=== PATIENT | male | born 1975 ===

== ENCOUNTER 2017-02-03 18:05 | Emergency (ER) | payer MEDICAID ==
[2017-02-03 18:14] VITALS: BP 129/78; PULSE 94; RESP 16; TEMP 99.3; O2SAT 96
[2017-02-03] MEDS ORDERED: Oxycodone/Acetaminophen 5/325 mg Tab ONE (18:14)
[2017-02-03] MEDS ORDERED: TDAP Vaccine 0.5 mL Syr IM ONE (18:18)
[2017-02-03] MEDS ORDERED: Oxycodone/Acetaminophen 5/325 mg Tab PO STA (18:18)
--- NOTE | 2017-02-03 18:25 | ED PDOC ---
Lower Extremity Pain/Injury Time Seen by Provider: 02/03/17 18:12 Chief Complaint (Nursing): Lower Extremity Problem/Injury Chief Complaint (Provider): Twisted Right Ankle History Per: Patient History/Exam Limitations: no limitations Onset/Duration Of Symptoms: Hrs Current Symptoms Are (Timing): Still Present Additional Complaint(s): Abraham Gregory, a 41 year old male, was brought into the ED by EMS with a twisted right ankle. The patient states that today while walking he tripped and fell over a pothole. He further states that he twisted his right ankle and landed on his left knee. Denies head injury or any other injury. - Ankle/Foot Description Of Injury: Fell, Twisted Past Medical History Reviewed: Historical Data, Nursing Documentation, Vital Signs Vital Signs: Last Vital Signs Temp 99.3 F 02/03/17 18:12 Pulse 94 H 02/03/17 18:12 Resp 16 02/03/17 18:12 BP 129/78 02/03/17 18:12 Pulse Ox 96 02/03/17 18:12 - Medical History PMH: Diabetes - Family History Family History: States: Unknown Family Hx - Allergies Allergies/Adverse Reactions: Allergies Allergy/AdvReac Type Severity Reaction Status Date / Time No Known Allergies Allergy Verified 02/03/17 18:12 Review of Systems Constitutional: Positive for: Other (Denies Head pain or any other medical injury.) Musculoskeletal: Positive for: Other (Twisted right ankle.) Physical Exam - Reviewed Nursing Documentation Reviewed: Yes Vital Signs Reviewed: Yes - Physical Exam Pulses-Dorsalis Pedis (L): 2+ Pulses-Dorsalis Pedis (R): 2+ Extremity: Positive for: Tenderness (Moderate tenderness to lateral maleolus of right ankle;Mild tenderness on dorsum of right foot;Moderate tenderness to left knee.), Swelling (Moderate swelling to lateral maleolus of right ankle; Mild swelling on dorsum of the right foot;Moderate swelling to left knee.), Other ( Superficial abrasion to left knee.). Negative for: Deformity - ECG O2 Sat by Pulse Oximetry: 96 (RA) Pulse Ox Interpretation: Normal - Progress ED Course And Treament: Ankle x-ray: no fx as per [facility] report. Ankle immobilized in ankle air cast splint by RN. Crutches provided. Medical Decision Making Medical Decision Makin:16 Initial Impression: 41 year old male presenting with twisted right ankle Initial Plan: * RAD left knee 3 views * RAD right ankle 3 views routine * RAD right foot 3 views routine * Boostrix vaccine 0.5ml IM * Percocet 5/325mg 2 tab PO Scribe Attestation Documented by Kerri Mishra acting as a scribe for Nixon Montgomery PA-C. Scribe Attestation All medical record entries made by the Scribe were at my direction and personally dictated by me. I have reviewed the chart and agree that the record accurately reflects my personal performance of the history, physical exam, medical decision making, and the department course for this patient. I have also personally directed, reviewed, and agree with the discharge instructions and disposition. Disposition - Clinical Impression Clinical Impression: Ankle sprain - Patient ED Disposition Is Patient to be Admitted: No - Disposition Referrals: Mirza Sinclair MD [Staff Provider] - Disposition: Routine/Home Disposition Time: 21:00 Condition: STABLE Instructions: Ankle Sprain (ED), Crutch Instructions (ED), Ankle Stirrup Splint (ED) Forms: [facility] ED School/Work Excuse Print Language: VIET[place]ESE
--- NOTE | 2017-02-03 18:56 | RAD ---
PROCEDURE: Left Knee Radiographs. Background Radiology CT scan HISTORY: Pain. COMPARISON: None. FINDINGS: BONES: Bone alignment and mineralization are normal. No acute fracture or bone destruction. JOINTS: Normal. JOINT EFFUSION: None. OTHER FINDINGS: None. IMPRESSION: Normal examination.
--- NOTE | 2017-02-03 18:57 | RAD ---
PROCEDURE: Right Foot Radiographs. HISTORY: trauma COMPARISON: None. FINDINGS: BONES: Bone alignment and mineralization are normal. There is no acute fracture or bone destruction. There is a prominent dorsal calcaneal enthesophyte and faint calcifications in the Achilles tendon. There is an os trigonum. JOINTS: Normal. SOFT TISSUES: Normal. OTHER FINDINGS: None. IMPRESSION: No acute fracture or dislocation.
--- NOTE | 2017-02-03 18:58 | RAD ---
PROCEDURE: Right Ankle Radiographs. HISTORY: Trauma COMPARISON: None FINDINGS: BONES: Bone alignment and mineralization are normal. There is no acute fracture or bone destruction JOINTS: Normal. Ankle mortise maintained. Talar dome intact SOFT TISSUES: There is moderate lateral malleolar soft tissue swelling. OTHER FINDINGS: None. IMPRESSION: No acute fracture or dislocation. Moderate lateral malleolar soft tissue swelling
--- NOTE | 2017-02-03 20:16 | CT ---
EXAM: CT Right Lower Extremity Without Intravenous Contrast CLINICAL HISTORY: 41 years old, male; Injury or trauma; Injury Stepped in pothole; Initial encounter; Blunt trauma; Ankle and foot; Right; Injury date: ; Additional info: Attention ankle and foot; ? Proximal 5th mtp FX TECHNIQUE: Axial computed tomography images of the right lower extremity without intravenous contrast. This CT exam was performed using one or more of the following dose reduction techniques: automated exposure control, adjustment of the mA and/or kV according to patient size, and/or use of iterative reconstruction technique. Coronal and sagittal reformatted images were created and reviewed. EXAM DATE/TIME: 02/03/2017 6:49 PM COMPARISON: CR - FOOT RIGHT 3 VIEWS ROUTINE 02/03/2017 6:28:04 PM FINDINGS: Bones/joints: There are degenerative changes at the right ankle. There is no ankle fracture. There is no effusion in the ankle joint. There are no hindfoot fractures. There are calcaneal spurs. Tarsal bones of the midfoot are intact. Metatarsals are intact. Phalanges second to fifth digits are intact. The distal phalanx of the great toe is incompletely imaged. Soft tissues: There is lateral soft tissue swelling at the ankle. There is no effusion in the ankle joint. IMPRESSION: Lateral soft tissue swelling at the ankle, no ankle joint effusion, no fracture Additional findings as described above.
== END 2017-02-03 21:17 | disposition home or self-care (01) ==
LOC: H.ER 18:05
DX: S93.401A Sprain of unspecified ligament of right ankle, initial encounter (principal); X50.9XXA Other and unspecified overexertion or strenuous movements or postures, initial encounter; Y92.480 Sidewalk as the place of occurrence of the external cause